=== PATIENT | male | born 1985 | race Two or more races ===

== ENCOUNTER 2016-03-18 13:40 | Emergency (ER) | payer OTHER ==
[2016-03-18 14:17] VITALS: BP 103/63
--- NOTE | 2016-03-18 14:21 | ER Document Report ---
ED Medical Screen (RME) - General Stated Complaint: FOLLOW UP/LACERATION TO RIGHT HAND Time seen by provider: 14:18 Mode of Arrival: Ambulatory Information source: Patient Notes: 30 yo male presents to ed for suture removal form right hand 12 stitches. TRAVEL OUTSIDE OF THE [place] IN LAST 30 DAYS: No - HPI Onset: Last week Quality of pain: Burning Pain Level: 2 Associated Symptoms: Other - suture removal Exacerbated by: Movement Relieved by: Denies Similar symptoms previously: No Recently seen / treated by doctor: Yes - Related Data Smoking: Non-smoker Frequency of alcohol use: Social Drug Abuse: None Physical Exam - Vital signs Vitals: Temp Pulse Resp BP Pulse Ox 97.8 F 61 16 103/63 97 03/18/16 14:16 03/18/16 14:16 03/18/16 14:16 03/18/16 14:16 03/18/16 14:16 Course - Vital Signs Vital signs: Temp Pulse Resp BP Pulse Ox 97.8 F 61 16 103/63 97 03/18/16 14:16 03/18/16 14:16 03/18/16 14:16 03/18/16 14:16 03/18/16 14:16
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
== END 2016-03-18 15:48 | disposition home or self-care (01) ==
LOC: ER 13:40
DX: S61.411D Laceration without foreign body of right hand, subsequent encounter (principal); V49.9XXD Car occupant (driver) (passenger) injured in unspecified traffic accident, subsequent encounter